=== PATIENT | female | born 1940 | race Caucasian/White ===

== ENCOUNTER 2017-02-11 01:15 | Emergency (ER) ==
[2017-02-11 01:37] VITALS: TEMP 96.8; BMI 27.1
[2017-02-11 02:34] LABS: BASOPHILS # (AUTO) 0.1 K/uL (0-0.2); BASOPHILS % (AUTO) 0.7 % (0.0-3.0); EOSINOPHILS # (AUTO) 0.2 K/ul (0.0-0.7); EOSINOPHILS % (AUTO) 2.7 % (0.0-7.0); HEMATOCRIT 45.2 % (37.0-47.0); HEMOGLOBIN 15.3 g/dl (12.0-16.0); IMMATURE GRANULOCYTE % (AUTO) 0.5 % (0.0-5.0); LYMPHOCYTES # (AUTO) 1.8 K/uL (0.60-3.4); LYMPHOCYTES % (AUTO) 23.5 (10.0-50.0); MEAN CORPUSCULAR HGB CONC 33.8 (31.8-35.4); MEAN CORPUSCULAR VOLUME 88.6 fl (81.0-99.0); MONOCYTES # (AUTO) 0.8 K/uL (0.4-2.0); MONOCYTES % (AUTO) 10.4 (0-10); NEUTROPHILS # (AUTO) 4.8 K/ul (2.0-6.9); NEUTROPHILS % (AUTO) 62.2; PLATELET COUNT 204 10^3/uL (140-440); WHITE BLOOD COUNT 7.69 K/ul (4.6-10.2)
--- NOTE | 2017-02-11 03:01 | CT ---
EXAM: CT scan brain without contrast HISTORY: Syncope COMPARISON: None. FINDINGS: The contiguous axial images obtained from the skull base to the convexities without contr ast utilizing 5-mm collimation. Sagittal and coronal reconstructions were imaged and reviewed... T he ventricles and CSF spaces are prominent compared with age appropriate atrophy. There is mild per iventricular hypodensity noted compatible with chronic microvascular disease. Atherosclerotic shepard es are seen involving the bilateral vertebral and cavernous internal carotid arteries. Mucoperioste al thickening is seen within the right sphenoid sinus. The mastoid air cells are clear. The calvar ium is intact. IMPRESSION: Age appropriate atrophy with chronic microvascular disease. ASVD. Benign sinus disease.
[2017-02-11 03:26] LABS: ALBUMIN 3.8 g/dL (3.4-5.0); ALBUMIN/GLOBULIN RATIO 1.19; ANION GAP 13.8; BILIRUBIN,TOTAL 0.6 mg/dL (0.00-1.20); BUN/CREATININE RATIO 16.66; CALCIUM 9.3 mg/dL (8.2-10.2); CREATININE 1.08 mg/dL (0.60-1.30); POTASSIUM 3.8 mmol/L (3.5-5.10); TROPONIN I 0.01 ng/ml (0.0000-0.4000)
[2017-02-11 03:27] LABS: CREATINE KINASE MB 9.7 ng/ml (0.0-3.6)
--- NOTE | 2017-02-11 05:31 | ED.PDOC ---
General ED Provider: Dr. LESLIE GOODWIN-ER Chief Complaint: Syncope Stated Complaint: was sitting at table at home talking to son when she had syncope episode for a few sec--denies cp or dyspena Time Seen by Physician: 01:20 Mode of Arrival: Ambulance Information Source: Patient, Family, EMT Exam Limitations: No limitations Primary Care Provider: JOSE CRUZ CLARK Nursing and Triage Documentation Reviewed and Agree: Yes Neurological Complaint Exam - Syncope/Near Syncope Complaint/Exam Onset/Duration: 30min ago Symptoms Are: Resolved Episodes Lasting: Seconds Number of Episodes: 1 Frequency of Episodes: 1 Episodes Witnessed: Yes Loss of Consciousness: No Associated Head Trauma: No Activity at Onset: Unknown Alleviating: Reports: Spontaneous resolution Associated Signs and Symptoms: Reports: Decreased oral intake, Vomiting. Denies : Pain, Diarrhea, GI blood loss, Short of air, Chest pain, Palpitations, Diaphoresis, Lightheadedness, Dizziness, Weakness, AMS, Numbness, Headache, Seizure, Remote head trauma, Recent head trauma GI Bleed Risk Factors: Reports: None Dysrhythmia Risk Factors: Reports: >45 years old JVD Present: No Carotid Bruit Present: No Glascow Coma Scale (see protocol): 15 Nystagmus Present: No Gag Reflex Present: Yes Meningeal Signs Positive: No Focal Weakness: Present: None Focal Sensory Loss: Present: None Gait: Normal [id number]: Normal Findings Romberg Test Positive: No Babinski Sign: Negative Right, Negative Left Heel to Toe Normal: Yes [place]-Hallpike Test Positive: Yes Differential Diagnoses: Insulin Rx, Hypovolemia Quality Indicator For Non-Traumatic Chest Pain/Syncope: EKG Performed Review of Systems - Review Of Systems Constitutional: Reports: No symptoms Eyes: Reports: No symptoms Ears, Nose, Mouth, Throat: Reports: No symptoms Respiratory: Reports: No symptoms Cardiac: Reports: Syncope GI: Reports: No symptoms : Reports: No symptoms Musculoskeletal: Reports: No symptoms Skin: Reports: No symptoms Neurological: Reports: No symptoms Endocrine: Reports: No symptoms Hematologic/Lymphatic: Reports: No symptoms All Other Systems: Reviewed and Negative Past Medical History - Past Medical History Previously Healthy: Yes Endocrine: Reports: Unknown Cardiovascular: Reports: Unknown Respiratory: Reports: Unknown Hematological: Reports: Unknown Gastrointestinal: Reports: Unknown Genitourinary: Reports: Unknown Neuro/Psych: Reports: Unknown Musculoskeletal: Reports: Unknown Cancer: Reports: Unknown Last Menstrual Period: NA - Surgical History General Surgical History: Reports: Unknown - Family History Family History: Reports: Unknown - Social History Smoking Status: Current every day smoker, Heavy tobacco smoker Hx Substance Use: No Alcohol Screening: None Lives: With family - Immunizations Tetanus Shot up to Date: No Physical Exam - Physical Exam Appearance: Well-appearing, No pain distress, Well-nourished Eyes: MARK, EOMI, Conjunctiva clear ENT: Ears normal, Nose normal, Oropharynx normal Neck: Supple Respiratory: Airway patent Cardiovascular: RRR GI/: Soft Musculoskeletal: Normal strength, ROM intact, No edema, No calf tenderness Skin: Warm, Dry, Normal color Neurological: Sensation intact, Motor intact, Reflexes intact, Cranial nerves intact, Alert, Oriented Psychiatric: Affect appropriate, Mood appropriate Interpretation - Radiology Interpretation Radiology Interpretation By: Radiologist Radiology Results: Negative Exam Interpreted: CT Scan Re-Evaluation - Re-Evaluation Time of Re-Evaluation: 06:45 Status: Improved Vital Signs Stable: Yes Pain Level: 0 Appearance: NAD Lungs: Clear Skin: Warm and Dry Neuro: Alert and Oriented X3 CV: RRR Physician Notification - Case Discussed [facility] - Critical Care Note Total Time (mins): 0 Course - Course Hematology/Chemistry: 02/11/17 02:33 02/11/17 02:33 Orders, Labs, Meds: Lab Review 02/11/17 02/11/17 02:33 05:55 WBC 7.69 RBC 5.10 Hgb 15.3 Hct 45.2 MCV 88.6 MCH 30.0 MCHC 33.8 RDW Coeff of Gunner 14.4 Plt Count 204 Immature Gran % (Auto) 0.5 Neut % (Auto) 62.2 Lymph % (Auto) 23.5 [place] % (Auto) 10.4 H Eos % (Auto) 2.7 Baso % (Auto) 0.7 Immature Gran # (Auto) 0.0 Neut # 4.8 Lymph # 1.8 [place] # 0.8 Eos # 0.2 Baso # 0.1 D-Dimer (Manual) 719.80 Sodium 136 Potassium 3.8 Chloride 101 Carbon Dioxide 25 Anion Gap 13.8 BUN 18 Creatinine 1.08 Estimated GFR (MDRD) 49.00 BUN/Creatinine Ratio 16.66 Glucose 113 Calcium 9.3 Total Bilirubin 0.60 AST 31 ALT 21 Alkaline Phosphatase 89 Total Creatine Kinase 297 262 CK-MB (CK-2) 9.7 H* 8.6 H* CK-MB (CK-2) % 3.01057 3.05721 Troponin I 0.0100 < 0.0100 Total Protein 7.0 Albumin 3.8 Globulin 3.2 Albumin/Globulin Ratio 1.19 TSH 0.095 L Free T4 1.47 H Orders Category Date Time Status EKG-(ED ONLY) Stat CARDIO 02/11/17 02:24 Completed HOLTER MONITOR-(ED ONLY) Stat CARDIO 02/11/17 06:32 Completed CBC W/ AUTO DIFF Stat LAB 02/11/17 02:33 Completed COMPREHENSIVE METABOLIC PANEL Stat LAB 02/11/17 02:33 Completed CREATINE KINASE Stat LAB 02/11/17 02:33 Completed CREATINE KINASE Timed LAB 02/11/17 05:55 Completed D-DIMER Stat LAB 02/11/17 02:33 Completed FREE T4 (FREE THYROXINE) Stat LAB 02/11/17 02:33 Completed THYROID STIMULATING HORMONE Stat LAB 02/11/17 02:33 Completed TROPONIN I Stat LAB 02/11/17 02:33 Completed TROPONIN I Timed LAB 02/11/17 05:[address] HEAD W/O CONTRAST Stat RADS 02/11/17 02:24 Completed Vital Signs: Temp Pulse Resp BP Pulse Ox 02/11/17 06:22 75 20 128/74 97 02/11/17 03:10 73 18 120/80 98 02/11/17 01:19 96.8 F L 63 14 110/60 98 Departure - Departure Time of Disposition: 06:46 Disposition: HOME SELF-CARE Discharge Problem: Syncope Instructions: Syncope (ED) Condition: Good Pt referred to PMD for follow-up: Yes Additional Instructions: increase fluids--return holter monitor and f/u with dr clark Allergies/Adverse Reactions: Allergies Unobtainable Allergy (Unverified 02/11/17 01:56) "MYCINS" Home Medications: Ambulatory Orders Aspirin [Aspirin EC] 81 mg PO DAILYWM 02/11/17 Atorvastatin Calcium [Lipitor] 20 mg PO DAILY 02/11/17 Celecoxib [Celebrex] 200 mg PO BID 02/11/17 Etanercept [Enbrel] 25 mg SQ WEEKLY 02/11/17 Levothyroxine Sodium [Unithroid] 150 mcg PO DAILY 02/11/17 Prednisone 1 mg PO QID 02/11/17 Valsartan [Diovan] 40 mg PO DAILY 02/11/17 Disposition Discussed With: Patient, Family
[2017-02-11 06:23] VITALS: BP 128/74
[2017-02-11 06:47] LABS: CREATINE KINASE 262 U/L
[2017-02-11 06:48] LABS: CREATINE KINASE MB 8.6 ng/ml (0.0-3.6)
--- NOTE | 2017-02-13 10:29 | HOLTER ---
PATIENT INFORMATION AND COMMENTS Indications: SYNCOPE __ Patient Medications: ASA, ATORVASTATIN, CELECOXIB, ETANERCEPT, LEVOTHYROXINE, PREDNISONE, VALSARTAN __ Pre-procedure Summary: Protocol: Standard Heart Rate Started: 02/11/17658 Minimum: 60 BPM Weight: 168 LBS Ended: 02/12/17658 Maximum: 110 BPM Height: 66" Duration: 24 HOURS Average: 74 BPM _ INTERPRETATIONS/OBSERVATIONS: 1. BASIC RHYTHM: SINUS, RATE 60 BPM TO 110 BPM, AVERAGE 75 BPM 2. INFREQUENT PVC'S AND RARE PAC'S 3. NO ST-T WAVE CHANGES FROM BASELINE 4. NO CORRELATION WITH ACTIVITY LOG MTDD
== END 2017-02-11 07:04 | disposition home or self-care (01) ==
LOC: ED 01:15
DX: R55 Syncope and collapse (principal); R11.10 Vomiting, unspecified; F17.210 Nicotine dependence, cigarettes, uncomplicated; Z79.899 Other long term (current) drug therapy
CPT/HCPCS: 36415; 80053; 82550; 82553; 84439; 84443; 84484; 85025; 85379; 93005; 93010; 99283

== ENCOUNTER 2018-09-04 21:44 | Emergency (ER) ==
[2018-09-04 22:03] VITALS: TEMP 98.5; BMI 29.9
--- NOTE | 2018-09-04 22:28 | ED.PDOC ---
General ED Provider: Dr. LESLIE LOW MD Chief Complaint: Rash Stated Complaint: i think i have shingles Time Seen by Physician: 22:20 Mode of Arrival: Walk-In Information Source: Patient Exam Limitations: No limitations Primary Care Provider: JOSE CRUZ BLUM Nursing and Triage Documentation Reviewed and Agree: Yes Does patient meet sepsis criteria?: No If yes, has appropriate treatment been initiated?: Yes System Inflammatory Response Syndrome: Not Applicable Sepsis Protocol: For patient's 13 years and over: Temp is 96.8 and below OR 101 and greater Pulse >90 BPM Resp >20/minute Acutely Altered Mental Status Are patient's symptoms suggestive of a new infection, such as: -Pneumonia -Skin, Soft Tissue -Endocarditis -UTI -Bone, Joint Infection -Implantable Device -Acute Abdominal Infection -Wound Infection -Meningitis -Blood Stream Catheter Infection -Unknown Review of Systems - Review Of Systems Constitutional: Reports: Other (itching on bra line) Eyes: Reports: No symptoms Ears, Nose, Mouth, Throat: Reports: No symptoms Respiratory: Reports: No symptoms Cardiac: Reports: No symptoms GI: Reports: No symptoms : Reports: No symptoms Musculoskeletal: Reports: No symptoms Skin: Reports: Bruising (on left back), Lesions, Other Neurological: Reports: No symptoms Endocrine: Reports: No symptoms Hematologic/Lymphatic: Reports: No symptoms All Other Systems: Reviewed and Negative Past Medical History - Past Medical History Previously Healthy: Yes Endocrine: Reports: Unknown Cardiovascular: Reports: Unknown Respiratory: Reports: Unknown Hematological: Reports: Unknown Gastrointestinal: Reports: Unknown Genitourinary: Reports: Unknown Neuro/Psych: Reports: Unknown Musculoskeletal: Reports: Unknown Cancer: Reports: Unknown Last Menstrual Period: UNKNOWN - Surgical History General Surgical History: Reports: Unknown - Family History Family History: Reports: Unknown - Social History Smoking Status: Current every day smoker, Heavy tobacco smoker Hx Substance Use: No Alcohol Screening: None - Immunizations Tetanus Shot up to Date: No Physical Exam - Physical Exam Appearance: Well-appearing, No pain distress, Well-nourished, Obese Ill-appearing: Mild Pain Distress: Mild Eyes: MARK, EOMI, Conjunctiva clear ENT: Ears normal, Nose normal, Oropharynx normal Neck: Supple Respiratory: Airway patent, Breath sounds clear, Breath sounds equal, Respirations nonlabored Cardiovascular: RRR GI/: Soft Musculoskeletal: Normal strength, ROM intact, No edema, No calf tenderness Skin: Warm Neurological: Sensation intact, Motor intact, Reflexes intact, Cranial nerves intact, Alert, Oriented Psychiatric: Affect appropriate, Mood appropriate Critical Care Note - Critical Care Note Total Time (mins): 0 Course - Course Orders, Labs, Meds: Orders Category Date Time Status Ketorolac Tromethamine [Toradol] MEDS 09/04/18 22:29 Discontinued 60 mg IM ONCE STA Medications Discontinued Medications Generic Name Dose Route Start Last Admin Trade Name Myla PRN Reason Stop Dose Admin Ketorolac Tromethamine 60 mg 09/04/18 22:29 09/04/18 22:32 Toradol IM 09/04/18 22:30 60 mg ONCE STA Administration Vital Signs: Temp Pulse Resp BP Pulse Ox 09/04/18 21:45 98.5 F 79 20 172/101 H 96 Departure - Departure Time of Disposition: 22:45 Disposition: HOME SELF-CARE Discharge Problem: Shingles Qualifiers: Herpes zoster complications: disseminated zoster Qualified Code(s): B02.7 - Disseminated zoster Instructions: Shingles (ED) Condition: Good Pt referred to PMD for follow-up: Yes IPMP verified?: No Additional Instructions: Stop Celebrex while on toradol (ketorolac) Prescriptions: Ketorolac Tromethamine 10 mg PO BID 5 Days #10 tablet NS Allergies/Adverse Reactions: Allergies MYCINS Adverse Reaction (Uncoded 09/04/18 22:02) Home Medications: Ambulatory Orders Aspirin [Aspirin EC] 81 mg PO DAILYWM 02/11/17 Atorvastatin Calcium [Lipitor] 20 mg PO DAILY 02/11/17 Celecoxib [Celebrex] 200 mg PO BID 02/11/17 Etanercept [Enbrel] 50 mg SQ WEEKLY 02/11/17 Levothyroxine Sodium [Unithroid] 150 mcg PO DAILY 02/11/17 Prednisone 4 mg PO BID 02/11/17 Albuterol Sulfate [Proair Hfa] 2 puff IH Q6H PRN 09/04/18 Cyclobenzaprine HCl [Flexeril] 10 mg PO DAILY PRN 09/04/18 Ketorolac Tromethamine 10 mg PO BID 5 Days #10 tablet NS 09/04/18 Losartan Potassium 100 mg PO DAILY 09/04/18 Triamterene/Hydrochlorothiazid [Dyazide 37.5-25 Capsule] 1 each PO DIRECTED PRN 09/04/18
[2018-09-04] MEDS ORDERED: TORADOL IM STA (22:29)
[2018-09-04] MEDS ORDERED: CATAPRES PO STA (22:52)
[2018-09-04 23:51] VITALS: BP 169/90
== END 2018-09-04 23:51 | disposition home or self-care (01) ==
LOC: ED 21:44
DX: B02.7 Disseminated zoster (principal); F17.210 Nicotine dependence, cigarettes, uncomplicated
CPT/HCPCS: 96372; 99283